=== PATIENT | female | born 1995 | race Caucasian/White ===

== ENCOUNTER 2018-11-10 04:49 | Inpatient (IN) | payer MEDICAID ==
[~2018-11-10] VITALS: Ht 154.9 cm; Wt 94.3 kg
[2018-11-10 06:04] LABS: CLARITY URINE CLEAR (CLEAR); COLOR URINE YELLOW (YELLOW); KETONES URINE NEGATIVE (NEGATIVE); LEUKOCYTE ESTERASE URINE NEGATIVE (NEGATIVE); NITRITE URINE NEGATIVE (NEGATIVE); OCCULT BLOOD URINE NEGATIVE (NEGATIVE); PH URINE >=9.0 (4.5-8.0); PROTEIN URINE NEGATIVE (NEGATIVE); SPECIFIC GRAVITY URINE 1.016 (1.005-1.030); UROBILINOGEN URINE 0.2 E.U./dL (0.2-1.0)
[2018-11-10] MEDS ORDERED: MORPHINE SULFATE 4 MG/ML CPJ (NOT FOR IM USE) IV STA ×2 (06:31→13:03)
[2018-11-10] MEDS ORDERED: ONDANSETRON HCL 4MG/2ML INJ IV STA (06:31)
[2018-11-10 06:49] LABS: BASOPHILS % 0.4 % (0.0-2.0); EOSINOPHILS % 0.2 % (0.0-5.0); HEMATOCRIT. 36.2 % (36.0-48.0); HEMOGLOBIN. 12.2 g/dL (12.0-16.0); LYMPHOCYTES % 11.2 % (20.0-50.0); MEAN CORPUSCULAR HEMOGLOBIN 29.6 pg (28.0-32.0); MEAN CORPUSCULAR VOLUME 87.7 fL (81.0-99.0); MEAN PLATELET VOLUME 10.2 fl (7.4-10.4); MONOCYTES % 3.7 % (2.0-8.0); NEUTROPHILS % 84.5 % (40.0-76.0); PLATELET 300 x1000/uL (130-400); RED BLOOD CELL COUNT 4.13 mill/uL (4.2-5.4); RED CELL DISTRIBUTION WIDTH 14.5 % (11.6-14.6)
[2018-11-10 06:55] LABS: CHLORIDE 101 mEq/L (98-107)
[2018-11-10] MEDS ORDERED: CEFTRIAXONE 1 G PREMIX 50 ML IV ONE (12:15)
[2018-11-10] MEDS ORDERED: MORPHINE SULFATE 4 MG/ML CPJ (NOT FOR IM USE) IV NR (15:45)
[2018-11-10 16:00] VITALS: BP 108/57
[2018-11-10] MEDS ORDERED: TRAMADOL 50MG TABLET PO PRN (17:30)
[2018-11-10] MEDS ORDERED: ONDANSETRON HCL 4MG/2ML INJ IV PRN (17:30)
[2018-11-10 17:53] VITALS: BP 108/57
[2018-11-10] MEDS ORDERED: ALBU18HF2 IH (18:44)
[2018-11-10] MEDS ORDERED: BECL10.62 IH (18:45)
[2018-11-10] MEDS: KETOROLAC 30MG/ML VIAL IV PRN (19:51)
[2018-11-10] MEDS: IPRATROPIUM/ALBUTEROL 0.5-3(2.5)MG/3ML NEB HHN PRN (19:55)
[2018-11-10 20:00] VITALS: BP 114/46
[2018-11-10] MEDS: SODIUM CHLORIDE 0.9% 1,000 ML IV SCH (20:04)
[2018-11-11] VITALS: BP 113/60
[2018-11-11] MEDS: IPRATROPIUM/ALBUTEROL 0.5-3(2.5)MG/3ML NEB HHN PRN ×2 (00:34→06:28)
[2018-11-11 04:00] VITALS: BP 116/61
[2018-11-11 05:18] LABS: BASOPHILS % 0.4 % (0.0-2.0); EOSINOPHILS % 2.5 % (0.0-5.0); HEMATOCRIT. 36.5 % (36.0-48.0); HEMOGLOBIN. 12.3 g/dL (12.0-16.0); LYMPHOCYTES % 34.6 % (20.0-50.0); MEAN CORPUSCULAR HEMOGLOBIN 29.8 pg (28.0-32.0); MEAN CORPUSCULAR VOLUME 88.4 fL (81.0-99.0); MEAN PLATELET VOLUME 9.2 fl (7.4-10.4); MONOCYTES % 9.5 % (2.0-8.0); PLATELET 225 x1000/uL (130-400); RED BLOOD CELL COUNT 4.13 mill/uL (4.2-5.4); RED CELL DISTRIBUTION WIDTH 14.6 % (11.6-14.6)
[2018-11-11] MEDS: SODIUM CHLORIDE 0.9% 1,000 ML IV SCH (06:45)
[2018-11-11] MEDS: KETOROLAC 30MG/ML VIAL IV PRN (06:56)
[2018-11-11] MEDS ORDERED: BUPIVACAINE HCL/PF 0.5% (5MG/ML) 10ML ONE (07:03)
[2018-11-11] MEDS ORDERED: SKIN ADHESIVE 0.7 GM EA TOP ONE ×2 (07:07→07:10)
[2018-11-11] MEDS ORDERED: BUPIVACAINE HCL 0.5% (5MG/ML) 50ML ONE (07:15)
[2018-11-11] MEDS ORDERED: ALBUTEROL 90MCG/PUFF 17GM INHALER INH ONE (07:18)
[2018-11-11] MEDS ORDERED: NEOSTIGMINE METHYLSULFATE 1MG/ML 10 ML VIAL ONE (07:26)
[2018-11-11] MEDS ORDERED: FENTANYL CITRATE/PF 50MCG/ML 2ML VIAL ONE ×2 (07:26→07:48)
[2018-11-11] MEDS ORDERED: MIDAZOLAM HCL 2 MG/2 ML VIAL ONE (07:26)
[2018-11-11] MEDS ORDERED: PROPOFOL 200MG/20ML VIAL IV ONE (07:26)
[2018-11-11] MEDS ORDERED: ROCURONIUM BROMIDE 10MG/ML VIAL 5ML IV ONE (07:26)
[2018-11-11] MEDS ORDERED: ONDANSETRON HCL 4MG/2ML INJ ONE (07:27)
[2018-11-11] MEDS ORDERED: LIDOCAINE HCL/PF 1% 10 MG/ML 5ML VIAL ONE (07:27)
[2018-11-11] MEDS ORDERED: DEXAMETHASONE 4MG/ML 1ML VIAL ONE (07:27)
[2018-11-11] MEDS ORDERED: METOCLOPRAMIDE HCL 10MG/2ML VIAL ONE (07:27)
[2018-11-11] MEDS ORDERED: SODIUM CHLORIDE 0.9% 10ML VIAL ONE (07:27)
[2018-11-11] MEDS ORDERED: SUCCINYLCHOLINE CHLORIDE 200MG/10ML IV ONE (07:27)
[2018-11-11] MEDS ORDERED: CEFAZOLIN SODIUM 1000MG/VIAL ONE (07:27)
[2018-11-11] MEDS ORDERED: GLYCOPYRROLATE 0.2 MG/ML 2ML VIAL ONE (07:27)
[2018-11-11] MEDS ORDERED: HYDROCORTISONE SOD SUCCINATE 100 MG/2 ML VIAL ONE (07:32)
[2018-11-11 07:38] LABS: UCG SCREEN NEGATIVE
[2018-11-11 07:44] LABS: CHLORIDE 104 mEq/L (98-107)
[2018-11-11] MEDS ORDERED: HYDROCODONE/ACETAMINOPHEN 5/325MG TABLET PO PRN (08:45)
[2018-11-11] MEDS ORDERED: ONDANSETRON HCL 4MG/2ML INJ IV PRN ×2 (08:45→09:00)
[2018-11-11] MEDS ORDERED: SODIUM CHLORIDE 0.9% 1,000 ML IV ONE (08:50)
[2018-11-11] MEDS ORDERED: PANTOPRAZOLE SODIUM 40 MG/VIAL IV SCH (09:00)
[2018-11-11] MEDS ORDERED: MEPERIDINE HCL/PF 25MG/ML CPJ IV PRN ×2 (09:00)
[2018-11-11] MEDS ORDERED: MORPHINE SULFATE 4 MG/ML CPJ (NOT FOR IM USE) IV PRN (09:00)
[2018-11-11] MEDS: HYDROMORPHONE HCL/PF 2MG/ML CPJ IV PRN ×2 (09:58→10:17)
[2018-11-11] MEDS: HYDROCODONE/ACETAMINOPHEN 5/325MG TABLET PO PRN ×2 (11:43→17:20)
[2018-11-11 12:00] VITALS: BP 129/81
[2018-11-11] MEDS ORDERED: DEXT 5%/0.45% NACL KCL 20MEQ/L 1,000 ML IV SCH (13:00)
[2018-11-11] MEDS ORDERED: SODIUM CHLORIDE 0.9% INJ 3ML FLUSH IVF SCH (14:00)
[2018-11-11 16:00] VITALS: BP 101/61
[2018-11-11 18:09] VITALS: BP 101/61
== END 2018-11-11 18:56 | disposition home or self-care (01) | DRG 263 ==
LOC: ER 04:49 → 6EST 12:13 → EDBEDREQTM 12:16 → EDBEDREQ 12:16 → EDBEDREQSVC 12:16 → ENRESERV 15:23
PROVIDERS: ADMIT Internal Medicine; ATTEND Internal Medicine
PROC: 0FT44ZZ Resection of Gallbladder, Percutaneous Endoscopic Approach (ICD-10-PCS; principal; 2018-11-11)
DX: K81.0 Acute cholecystitis (principal); J45.909 Unspecified asthma, uncomplicated; Z79.899 Other long term (current) drug therapy
CPT/HCPCS: 36415; 71045; 76705; 80048; 80076; 81025; 83605; 88304; 96365; 96375; 96376; 99285; J0330; J0690; J0696; J1100; J1170; J1720; J1885; J2175; J2250; J2270; J2405; J2704; J2710; J2765; J3010; J3490; J7030; J7620

== ENCOUNTER 2019-04-13 12:03 | Emergency (ER) | payer SELFPAY ==
[~2019-04-13] VITALS: Ht 154.9 cm; Wt 85.0 kg
[~2019-04-13 12:03] MED LIST: ALBU18HF2 IH; BECL10.62 IH
[2019-04-13] MEDS ORDERED: KETOROLAC 60MG/2ML VIAL IM ONE (12:30)
[2019-04-13] MEDS ORDERED: HYDROCODONE/ACETAMINOPHEN 10/325MG TABLET PO ONE (14:30)
[2019-04-13 14:56] VITALS: BP 121/88
== END 2019-04-13 15:00 | disposition home or self-care (01) ==
LOC: ER 12:03
DX: M25.561 Pain in right knee (principal); Z91.81 History of falling
CPT/HCPCS: 73562; 81025; 96372; 99283; J1885; L1830

== ENCOUNTER 2019-04-27 19:30 | Emergency (ER) | payer MEDICAID ==
[~2019-04-27] VITALS: Ht 154.9 cm; Wt 87.0 kg
[2019-04-27 20:36] VITALS: BP 110/60
== END 2019-04-27 20:42 | disposition home or self-care (01) ==
LOC: ER 19:30
DX: M25.561 Pain in right knee (principal)
CPT/HCPCS: 99281